=== PATIENT | male | born 1980 | race Caucasian/White ===

== ENCOUNTER 2023-12-13 15:38 | Outpatient (CLI) | payer OTHER, SELFPAY ==
--- NOTE | 2023-12-13 15:48 | MR_ITS ---
WS: [email or web address] MRI LUMBAR SPINE NONCONTRAST HISTORY: M54.16 - Radiculopathy, lumbar region COMPARISON: None available. TECHNIQUE: Sagittal and axial multisequence imaging is submitted. Straightening of the normal cervical lordosis and thoracic kyphosis. There is small disc protrusions at C4-5 and C6-7. No cord compression. Reversal of the normal lumbar lordosis centered at L1. Disc spaces are narrowed throughout the lumbar spine. Reactive marrow edema in the adjacent endplates of L2 and L3. Study is compromised by motion artifact. Conus terminates normally at L1. L1-L2: Normal. L2-L3: 3 mm retrolisthesis of L2. Diffuse annular disc bulging encroaching upon the ventral thecal sa c and subarticular recesses. There is mild contact on the traversing L3 nerve roots. Mild facet arthr itis. Mild central, subarticular recess and foraminal stenosis. L3-L4: Mild disc bulging with facet and ligamentum flavum hypertrophy. Very mild bilateral subarticul ar recess stenosis and mild foraminal stenosis. L4-L5: Diffuse annular disc bulge with a central disc protrusion. Ligamentum flavum and facet arthrit is is mild. Small amount of fluid in the facet joints. There is mild disc encroachment upon the RIGHT traversing L5 nerve root. Mild to moderate bilateral foraminal stenosis, RIGHT greater than LEFT. L5-S1: Mild annular disc bulging and facet disease. Mild LEFT foraminal stenosis. MR/MR lumbar spine wo con* [id number] IMPRESSION: 1. Reversal of the normal lumbar lordosis centered at L1. 2. Advanced degenerative disc disease and osteophytosis at the thoracolumbar r egion. 3. L2 retrolisthesis by 3 mm. 4. L2-3: Mild central, subarticular recess and foraminal stenosis with disc co ntacting the traversing L3 nerve roots. 5. L3-4: Mild subarticular recess and foraminal stenosis. 6. L4-5: Small central disc protrusion. Mild to moderate bilateral foraminal s tenosis and mild subarticular recess stenosis. RIGHT foraminal stenosis greater than LEFT. Mild disc contact on the RIGHT traversing L5 nerve root. 7. L5-S1: Mild LEFT foraminal stenosis.
== END 2023-12-13 15:39 | disposition home or self-care (01) ==
PROVIDERS: PCP Nurse Practitioner Family; Visit Provider Nurse Practitioner Family
DX: M54.16 Radiculopathy, lumbar region (principal)
CPT/HCPCS: 72148

== ENCOUNTER → 2024-01-11 08:56 | Outpatient (BNVA) | payer OTHER, SELFPAY | PROVIDERS: PCP Nurse Practitioner Family; Visit Provider Orthopaedic Surgery | DX: M54.16 Radiculopathy, lumbar region (principal); M54.9 Dorsalgia, unspecified | CPT/HCPCS: 72110 ==

== ENCOUNTER 2024-04-25 15:53 | Outpatient (CLI) | payer OTHER, SELFPAY ==
--- NOTE | 2024-04-25 16:00 | MR_ITS ---
WS: [email or web address] MRI CERVICAL SPINE NONCONTRAST TECHNIQUE: Sagittal T1, T2 and STIR imaging. Axial T2, gradient, and fiesta imaging. CLINICAL INFORMATION: neck pain COMPARISON: None. FINDINGS: Images degraded by motion. Straightening of the normal cervical lordosis. No high-grade central canal narrowing. Peripheral T2 s ignal abnormality in the cervical cord at C3-4. Partially visualized signal normality in the upper th oracic cord. Findings are nonspecific but can be seen with chronic demyelinating plaques. Recommend c orrelation with clinical history. C2-C3: Mild facet arthropathy. Spinal canal and foramen are patent. C3-C4: Mild facet arthropathy. Mild RIGHT bony foraminal narrowing. Spinal canal is patent. C4-C5: RIGHT paracentral disc osteophyte complex eccentric to the RIGHT. Severe RIGHT bony foraminal narrowing. Mild central canal stenosis. Slight indentation of the cervical cord. LEFT foramen is peters nt. Mild facet arthropathy. C5-C6: Mild facet arthropathy. Spinal canal and foramen are patent. C6-C7: Mild disc osteophyte complex with endplate ridging. Mild bilateral bony foraminal narrowing. M ild facet arthropathy. C7-T1: Spinal canal and foramen are patent. Visualized brain stem structures: Normal. Prevertebral soft tissues: Normal. MR/MR cervical spin wo con* [id number] IMPRESSION: Some images degraded by patient motion 1. Peripheral T2 hyperintense lesions in the cervical and upper thoracic cord. Recommend correlation with history of demyelinating disease. Consider MRI of t he head without and with gadolinium enhancement in further evaluation. 2. Severe RIGHT C4-5 bony foraminal narrowing. 3. RIGHT paracentral disc osteophyte complex C4-5 with mild central canal sten osis and slight indentation on the cervical cord. 4. RIGHT paracentral disc osteophyte protrusion C6-7 with mild foraminal narro wing at this level. Spinal canal is patent.
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
== END 2024-04-25 15:54 | disposition home or self-care (01) ==
LOC: RAD 15:56
PROVIDERS: PCP Nurse Practitioner Family; Visit Provider Orthopaedic Surgery
DX: M25.78 Osteophyte, vertebrae (principal); R93.7 Abnormal findings on diagnostic imaging of other parts of musculoskeletal system
CPT/HCPCS: 72141; 72146

== ENCOUNTER → 2024-05-28 15:00 | Outpatient (BNVA) | payer MEDICAID, SELFPAY | PROVIDERS: PCP Nurse Practitioner Family; Visit Provider Orthopaedic Surgery | DX: M54.9 Dorsalgia, unspecified (principal); M54.16 Radiculopathy, lumbar region | CPT/HCPCS: 99214 ==

== ENCOUNTER → 2024-08-05 10:17 | Outpatient (BNVA) | payer MEDICAID, SELFPAY | PROVIDERS: PCP Nurse Practitioner Family; Referring Provider Orthopaedic Surgery; Visit Provider Anesthesiology Pain Medicine | DX: M17.0 Bilateral primary osteoarthritis of knee (principal) | CPT/HCPCS: 73562 ==

== ENCOUNTER 2024-08-13 06:00 | Outpatient (CLI) | payer MEDICAID, SELFPAY | END 2024-08-13 06:01 | LOC: SPT 09-04 09:16 | PROVIDERS: Visit Provider Student in an Organized Health Care Education/Training Program | DX: Z46.89 Encounter for fitting and adjustment of other specified devices (principal); M17.11 Unilateral primary osteoarthritis, right knee | CPT/HCPCS: L1812 ==

== ENCOUNTER → 2024-09-03 11:22 | Outpatient (BNVA) | payer MEDICAID, SELFPAY | PROVIDERS: PCP Nurse Practitioner Family; Visit Provider Student in an Organized Health Care Education/Training Program | DX: M17.0 Bilateral primary osteoarthritis of knee (principal); M25.561 Pain in right knee; M25.562 Pain in left knee | CPT/HCPCS: 73560; 73565 ==

== ENCOUNTER → 2024-10-08 09:22 | Outpatient (BNVA) | payer MEDICAID, SELFPAY | PROVIDERS: PCP Physician Assistant; Visit Provider Orthopaedic Surgery | DX: M51.16 Intervertebral disc disorders with radiculopathy, lumbar region (principal) | CPT/HCPCS: 72110 ==

== ENCOUNTER → 2024-10-30 11:30 | Outpatient (BNVA) | payer MEDICAID, SELFPAY | PROVIDERS: PCP Nurse Practitioner Family; Referring Provider Orthopaedic Surgery; Visit Provider Specialist | DX: G35 Multiple sclerosis (principal) | CPT/HCPCS: 80053; 84439; 84443; 85651; 86160; 86162; 86235; 86255; 86376 ==

== ENCOUNTER 2024-11-14 06:44 | Outpatient (CLI) | payer MEDICAID, SELFPAY ==
--- NOTE | 2024-11-14 07:15 | MR_ITS ---
WS: [email or web address] MRI CERVICAL SPINE with and without contrast HISTORY: G35 - Multiple sclerosis COMPARISON: 04/25/2024 Technique: Multiplanar, multisequence noncontrast imaging of the cervical spine. MultiHance 20 mL IV. Straightening of the normal cervical lordosis. No high-grade central stenosis. No inferior displacement the cerebellar tonsils. Increased signal in the posterior cord at C3-4. Additional signal abnormality in the RIGHT lateral cord centered at the C7 level extending over a length of approximately 2 cm. Neither of these cord lesions enhance. No obvious progression since the prior exam. C2-C3: Minimal facet arthritis. No stenosis. C3-C4: Mild facet arthritis. Moderate LEFT foraminal stenosis due to disc osteophyte disease. C4-C5: Disc bulging encroaching upon the ventral thecal sac. RIGHT foraminal disc osteophyte causing moderate RIGHT foraminal stenosis. C5-C6: Mild facet arthritis. No stenosis. C6-C7: Diffuse annular disc bulging with osteophytic ridging. Mild bilateral foraminal stenosis and facet arthritis. C7-T1: Normal. No postcontrast enhancement in the cervical cord. MR/MR cervical spine wo/w [id number] IMPRESSION: 1. Peripheral T2 hyperintense lesions in the upper cervical cord and at the ce rvical thoracic junction. Consistent with demyelinating disease such as MS. No active demyelination or enhancement. 2. Moderate LEFT foraminal stenosis due to disc osteophyte disease at C3-4. 3. RIGHT foraminal disc osteophyte causing moderate RIGHT foraminal stenosis a t C4-5. 4. Mild bilateral foraminal stenosis at C6-7.
--- NOTE | 2024-11-14 08:00 | MR_ITS ---
WS: [email or web address] MRI BRAIN WITH AND WITHOUT CONTRAST HISTORY: G35 - Multiple sclerosis COMPARISON: None available. TECHNIQUE: Multiplanar imaging performed through the brain with MultiHance 20 ml's IV. Normal diffusion imaging. No acute infarct. Scattered T2 and FLAIR signal hyperintensities with some of the lesions closely associated with the corpus callosum. Focal T2 lesions associated with the occipital horns of the lateral ventricles, posterior RIGHT corpus callosum and LEFT mid corpus callosum. There are few additional FLAIR signal abnormalities. 1 of these lesions is in the posterior frontal cortex towards the vertex and in the posterior LEFT internal capsule. Focal cortical increased T2 signal LEFT paramedian posterior parietal lobe. Tiny focus of increased T2 signal in the lateral LEFT middle cerebellar peduncle. No susceptibility artifacts or prior lacunar infarcts. Ventricles and extra-axial spaces are normal. Clivus and pituitary gland are normal. The white matter lesion in the posterior LEFT frontal lobe cortex does enhance. The very small lesion in the LEFT middle cerebellar peduncle also enhances. This could potentially be a crossing vessel. Dural venous sinuses are normal. Paranasal sinuses: Well aerated with no significant disease. Mastoid air cells: Normal. Calvarium and scalp: Normal. MR/MR head wo/w con [id number] IMPRESSION: 1. Scattered pericallosal T2 and FLAIR signal hyperintensities consistent with demyelinating disease. No prior studies for comparison. 2. There are 2 white matter foci which do enhance consistent with active demye lination. T2 lesion enhances in the posterior LEFT frontal lobe cortex. Additio nal very tiny focus of enhancement in the LEFT middle cerebellar peduncle. This could potentially be a crossing vessel but more likely an active area of demye lination. 3. No significant volume loss. 4. No acute infarct.
[2024-11-14] MEDS: gadobenate dimeglumine 20 mL vial IV (08:16)
--- NOTE | 2024-11-14 08:45 | MR_ITS ---
WS: [email or web address] MRI THORACIC SPINE with and without contrast HISTORY: G35 - Multiple sclerosis COMPARISON: 04/25/2024 TECHNIQUE: Multiplanar sequences are performed in sagittal and axial planes. MultiHance 20 mL. Straightening of the normal thoracic curvature. Remote T11 compression fracture. No marrow edema or acute fracture. Eccentric signal abnormality in the upper thoracic cord at the C7-T1 level. T2 lesion is eccentric to the RIGHT and posterior with mild atrophy. Additional T2 cord hyperintensity extends over a length of 2.5 cm centered at T7-8.. Additional T2 hyperintensity in the thoracic cord centered at T10-11 extends over a length of 2 cm. Mild cord atrophy associated with the demyelinating lesion suggesting a chronic process. No enhancement. T1-2: Normal. T2-3: Normal. T3-4: Normal. T4-5: Mild facet arthritis. T5-6: Mild facet arthritis and foraminal stenosis. T6-7: Small central disc protrusion. Facet arthritis and mild foraminal stenosis. T7-8: Mild foraminal stenosis and mild facet arthritis. T8-9: Bilateral facet arthritis and foraminal stenosis. T9-10: Mild facet arthritis and foraminal stenosis. T10-11: Mild bilateral facet arthritis and foraminal stenosis. T11-12: Bilateral facet arthritis and foraminal stenosis, LEFT greater than RIGHT. T12-L1: Osteophytic ridging with disc bulging and a shallow LEFT foraminal disc protrusion. Mild bilateral foraminal stenosis. MR/MR thoracic spine wo/w [id number] IMPRESSION: 1. Multifocal T2 hyperintense lesions within the thoracic cord as described ab ove. Similar in appearance to the study of 04/25/2024 with no obvious progressi on. No active demyelination. 2. Mild cord atrophy associated with the demyelinating lesions in the thoracic cord. 3. Multilevel areas of facet joint arthritis and foraminal narrowing.
== END 2024-11-14 06:45 | disposition home or self-care (01) ==
LOC: RAD 06:45
PROVIDERS: PCP Physician Assistant; Visit Provider Specialist
DX: G35 Multiple sclerosis (principal); M47.814 Spondylosis without myelopathy or radiculopathy, thoracic region; M48.04 Spinal stenosis, thoracic region; M51.24 Other intervertebral disc displacement, thoracic region; M48.02 Spinal stenosis, cervical region
CPT/HCPCS: 70553; 72156; 72157

== ENCOUNTER 2025-02-05 08:15 | Oncology outpatient (recurring) (ONCR) | payer MEDICAID, SELFPAY ==
[2025-02-05] VITALS (7 sets, daily range): BP systolic 115–129; BP diastolic 68–81; PULSE 65–93; TEMP 36.3–36.8; O2SAT 92–95
[2025-02-05] MEDS: diphenhydrAMINE 50 mg/mL SDV 1mL 25 MG IVP ×2 (09:12→12:52)
[2025-02-05] MEDS: methylPREDNISolone sod succ 125 mg/2 mL INJ IVP (09:16)
== END 2025-02-05 23:59 | disposition home or self-care (01) ==
PROVIDERS: PCP Physician Assistant; Visit Provider Specialist
DX: G35 Multiple sclerosis (principal); Z79.899 Other long term (current) drug therapy
CPT/HCPCS: 96375; 96376; 96413; 96415; A4222; J1200; J2350; J2919; J7050; J9999

== ENCOUNTER 2025-02-20 08:21 | Oncology outpatient (recurring) (ONCR) | payer MEDICAID, SELFPAY ==
[2025-02-20] VITALS (7 sets, daily range): BP systolic 116–153; BP diastolic 72–90; PULSE 61–88; RESP 16–17; TEMP 36.2–36.5; O2SAT 94–97
[2025-02-20] MEDS: diphenhydrAMINE 50 mg/mL SDV 1mL 25 MG IVP (09:08)
[2025-02-20] MEDS: methylPREDNISolone sod succ 125 mg/2 mL INJ IVP (09:13)
== END 2025-02-20 23:59 | disposition home or self-care (01) ==
PROVIDERS: PCP Physician Assistant; Visit Provider Specialist
DX: G35.B0 Primary progressive multiple sclerosis, unspecified (principal); Z79.899 Other long term (current) drug therapy
CPT/HCPCS: 96375; 96413; 96415; A4222; J1200; J2350; J2919; J7050; J9999

== ENCOUNTER → 2025-03-06 13:33 | Outpatient (BNVA) | payer MEDICAID, SELFPAY | PROVIDERS: PCP Physician Assistant; Visit Provider Specialist | DX: G82.20 Paraplegia, unspecified (principal); G35.D Multiple sclerosis, unspecified | CPT/HCPCS: 36415; 83516 ==